=== PATIENT | male | born 1995 | race Caucasian/White ===

== ENCOUNTER 2021-12-12 13:33 | Emergency (ER) | payer BC, SELFPAY ==
[2021-12-12 13:39] VITALS: BP 138/83; PULSE 86; RESP 16; TEMP 36.6; O2SAT 98; BMI 22.8
--- NOTE | 2021-12-12 13:46 | ED.NURSE ---
Patient's acquaintance is deaf, but patient is not and does not require interpretation services. Offered interpretation services for acquaintance but both patient and acquaintance decline. Patient is able to interpret for acquaintance.
--- NOTE | 2021-12-12 13:57 | ED_ITS ---
HPI - General Adult General Time Seen by Provider: 13:58 Date Seen: 12/12/21 Chief complaint: Animal Bite Stated complaint: Cat bite/punctures L arm Time Seen by Provider: 12/12/21 13:42 Source: patient Mode of arrival: ambulatory Limitations: no limitations History of Present Illness HPI narrative: Patient is a pleasant 26 year white male who found a stray cat in his garage. He picked up the CT and it went ?crazy?, scratched and bit him on his left forearm. No injuries to the face or head or neck. He is up-to-date on tetanus within the last 5 years, generally healthy, no allergies to medicines. They have a cat sequestered in a cage. Related Data Previous Rx's Medication Instructions Recorded amoxicillin 875 mg-potassium 1 tab PO BID #10 tabs 12/12/21 clavulanate 125 mg tablet Allergies Allergy/AdvReac Type Severity Reaction Status Date / Time No Known Drug Allergies Allergy Verified 12/12/21 13:43 Review of Systems Status of ROS: Reports: 6 or more systems reviewed and unremarkable except as noted in History and below PFSH PFS Social History service: No Exam Narrative: Exam Narrative: Objective: Patient has very scratches on his left forearm couple of small puncture wounds on the top of his hand medially, a puncture wound in his medial proximal forearm, several scratches. Range of motion of the arm in good distal CMS, no evidence of cellulitis. The patient reports he was also small puncture wound on the back of his left leg Const: Vital Signs, click to edit/add: Vital Signs - 24 hr 12/12/21 13:39 Temperature 98 F Pulse Rate [Pulse Oximeter] 86 Respiratory Rate 16 Blood Pressure [Ri ght Upper Arm] 138/83 Pulse Oximetry 98 Oxygen Delivery Me thod Room Air Course Vital Signs Vital signs: Initial Vital Signs Temperature 98 F 12/12/21 13:39 Temperature Source Temporal Artery Scan 12/12/21 13:39 Pulse Rate 86 12/12/21 13:39 Respiratory Rate 16 12/12/21 13:39 Blood Pressure 138/83 12/12/21 13:39 Blood Pressure Mean 101 12/12/21 13:39 Blood Pressure Position Sitting 12/12/21 13:39 Pulse Oximetry 98 12/12/21 13:39 Oxygen Delivery Method 12/12/21 13:39 Vital Signs Temperature 98 F 12/12/21 13:39 Pulse Rate 86 12/12/21 13:39 Respiratory Rate 16 12/12/21 13:39 Blood Pressure 138/83 12/12/21 13:39 Pulse Oximetry 98 12/12/21 13:39 Oxygen Delivery Method 12/12/21 13:39 Temperature 98 F 12/12/21 13:39 Pulse Rate 86 12/12/21 13:39 Respiratory Rate 16 12/12/21 13:39 Blood Pressure 138/83 12/12/21 13:39 Pulse Oximetry 98 12/12/21 13:39 Oxygen Delivery Method 12/12/21 13:39 Medical Decision Making MDM Narrative Medical decision making narrative: Per the [facility] website, peripheral or extremity bites with a CaT sequestered are generally not treated with PE P. we will contact the police who will contact animal control. I suspect they could have the CT tested for rabies. Or observed, or confirm regional account executive and confirm rabies vaccination. At this point will give the patient Augmentin 875 door orally. Will start 875 b.i.d. x7 days. He is up-to-date on tetanus as mention. Disposition pending I animal control. [facility] law enforcement would not take report on a cat bite. Given the extremity bite, and MD is recommendations, given the patient has the CT sequestered in a cage would recommend he take it to a printing worker supervisor for rabies testing and probably send to the [facility]. If there is any difficulty with this and I would recommend post exposure prophylaxis in immunization for rabies. Discharge Plan Discharge Clinical Impression: Bite by animal Patient Disposition: Home, Self-Care Condition: Stable Additional Instructions: Keep wound areas clean, covered with bacitracin, follow up per police and animal control. Activity Level: No Restrictions Discharge Diet: Regular Prescriptions: New amoxicillin-pot clavulanate 875-125 mg tablet 1 tab PO BID Qty: 10 0RF Follow Up/Referrals: Fermin Mccullough MD [Primary Care Provider] - Stand Alone Forms: [facility] Info Instructions
[2021-12-12] MEDS: AMOXICILLIN/CLAVULANATE 875 mg/125 mg TABLET PO (13:58)
--- NOTE | 2021-12-12 14:15 | ED.NURSE ---
did cleanse multiple wounds with hibiclens and water. used bacitracin and bandaids -telfa. has multiple puncture wounds and scratches on r leg and right arm.
== END 2021-12-12 14:35 | disposition home or self-care (01) ==
PROVIDERS: Emergency Provider Family Medicine; PCP Family Medicine
DX: S51.852A Open bite of left forearm, initial encounter (principal); W55.01XA Bitten by cat, initial encounter
CPT/HCPCS: 99283; A9270

== ENCOUNTER 2022-03-21 08:16 | Outpatient (CLI) | payer BC, SELFPAY | END 2022-03-21 08:17 | disposition home or self-care (01) | PROVIDERS: PCP Family Medicine; Visit Provider Family Medicine | DX: N46.9 Male infertility, unspecified (principal) | CPT/HCPCS: 89310; 89322; 89398 ==

== ENCOUNTER 2022-05-24 11:46 | Outpatient (CLI) | payer BC, SELFPAY | END 2022-05-24 11:47 | disposition home or self-care (01) | PROVIDERS: PCP Family Medicine; Visit Provider Family Medicine | DX: Z00.00 Encounter for general adult medical examination without abnormal findings (principal); Z11.3 Encounter for screening for infections with a predominantly sexual mode of transmission; Z13.6 Encounter for screening for cardiovascular disorders | CPT/HCPCS: 0353U; 80048; 80061; 80074; 86592; 86703; 87491; 87591 ==

== ENCOUNTER 2023-05-16 13:41 | Outpatient (CLI) | payer BC, SELFPAY | END 2023-05-16 13:42 | disposition home or self-care (01) | PROVIDERS: PCP Family Medicine; Visit Provider Family Medicine | DX: Z11.3 Encounter for screening for infections with a predominantly sexual mode of transmission (principal) | CPT/HCPCS: 86592; 86703; 87491; 87591 ==